=== PATIENT | female | born 1935 | race Caucasian/White ===

== ENCOUNTER 2016-10-23 05:34 | Inpatient (IN) | payer MEDICARE ==
[2014-10-09 03:48] VITALS: BMI 26.7
[2016-10-23] MEDS ORDERED: TRANEXAMIC ACID 1,000 MG in NS 100 ML IV ONE ×4 (06:00)
[2016-10-23] MEDS ORDERED: BUPIVACAINE LIPOSOME/PF 1.3% 20 ML VIAL INF ONE (06:00)
[2016-10-23] MEDS ORDERED: GABAPENTIN 300 MG CAP ONE (06:12)
[2016-10-23] MEDS ORDERED: ACETAMINOPHEN 325 MG/TAB TABLET PO ONE (06:12)
[2016-10-23] MEDS ORDERED: CEFAZOLIN 1 GM VIAL ONE (06:12)
[2016-10-23] MEDS ORDERED: Celecoxib 200 MG CAP PO ONE (06:12)
[2016-10-23] MEDS ORDERED: OXYCODONE (OxyCONTIN) 20 MG TAB PO ONE (06:12)
[2016-10-23] MEDS ORDERED: DEXAMETHASONE 4 MG/ML VIAL ONE (06:13)
[2016-10-23 06:37] LABS: BLOOD UREA NITROGEN 9 MG/DL (7-17); CALCIUM 9.4 MG/DL (8.4-10.2); CALCULATED OSMOLALITY 266 MOs/Kg (270-290); CHLORIDE 101 mEq/L (98-107); GLUCOSE 120 MG/DL (70-99); SODIUM LEVEL 138 mEq/L (137-146)
[2016-10-23] MEDS ORDERED: FENTANYL 100 MCG/2 ML VIAL IV PRN ×2 (06:45)
[2016-10-23] MEDS ORDERED: ONDANSETRON HCL 4 MG ODT TAB PO PRN (06:45)
[2016-10-23] MEDS ORDERED: HYDROmorphone 1 MG INJECTION IV PRN ×4 (06:45→10:29)
[2016-10-23] MEDS ORDERED: ONDANSETRON HCL 4 MG/2 ML VIAL IV PRN ×2 (06:45→10:29)
[2016-10-23] MEDS ORDERED: LABETALOL 20 MG/4 ML SYRINGE IV PRN (06:45)
[2016-10-23] MEDS ORDERED: MEPERIDINE 25 MG/ML TUBEX IV PRN (06:45)
[2016-10-23] MEDS ORDERED: hydrALAZINE 20 MG/ML VIAL IV PRN (06:45)
--- NOTE | 2016-10-23 06:49 | SC.ANESPOS ---
[id number], Hemodynamically Stable, Pain Control Adequate Phase I & II Recovery Complete: Yes Apparent Anesthesia Complication: No : N - Vital Signs Blood Pressure: 154/68 Pulse: 85 Resp Rate: 18 O2 Sat: 97 Temp: 97.7 F
--- NOTE | 2016-10-23 06:51 | HIM.ANES ---
Anesthesia Evaluation & Plan Diagnoses: UNILATERAL PRIMARY OSTEOARTHRITIS, RIGHT KNEE (10/23/16) Consented Procedure: ADDUCTOR CANAL BLOCK. RIGHT TOTAL KNEE ARTHROPLASTY - Focused Review of Systems Cardiac History: Yes: Hx Hypertension, Hx Heart Murmur, Hx Cardiac Disorders, Hx Abnormal Cholesterol/Hyperlipidemia HEENT: Yes: Cataracts (BILAT CATARACTS), Cataract Removal (BILAT), Glaucoma, Hx Dysphagia, Hx Vision Problem (READING GLASSES), Other HEENT Problems Respiratory: Yes: Hx Snoring No: Hx Pneumonia Gastrointestinal: Yes: Hx Gastrointestinal Disorders, Hx Chronic Constipation, Hx Colonoscopy, Hx Endoscopy, Hx Esophageal Dilatation, Hx Robledo's Esophagus No: Hx Gastroesophageal Reflux Disease Neurological/Musculoskeletal: Yes: Hx Back Pain No: Hx Neurological Disorders Psychological: No Hx Mental/Emotional Disorders Endocrine: No: Hx Hyperthyroidism, Hx Hypothyroidism Blood/Autoimmune: No: Hx Blood Transfusions, Hx Anemia, Hx AIDS, Hx Hepatitis (type) Smoking Status: Never smoker Hx Echocardiogram (date): Yes (10/01/2016 EF 64% TRACE MR) Surgical History: Yes: Back (CERVIAL NECK) - Focused Physical Exam NPO since: 1499 Mallampati: Class III Thyromental Distance: Greater than 3 Neck: Full Range of Motion Dental: Removable Dental Work Cardiovascular/Chest: Normal Respiratory: Decreased breath sounds Any problems with anesthesia, including nausea and vomiting?: No Any relatives with a history of Malignant Hyperthermia?: No Beta Jaqui given (if appropriate): N/A Other: Problem List Problem Status Onset Acute delirium Acute Acute psychosis Acute Facial laceration Acute Gastroesophageal reflux disease Acute Hypertension Acute Hyponatremia Acute Right knee pain Acute CBC/BMP/Other 10/23/16 06:07 Allergies Allergy/AdvReac Type Severity Reaction Status Date / Time prochlorperazine edisylate Allergy See Verified 10/23/16 06:27 [From Compazine] Comments prochlorperazine maleate Allergy See Verified 10/23/16 06:27 [From Compazine] Comments Home Medications Medication Instructions Recorded Last Taken Type Lisinopril [Prinivil] 40 mg PO DAILY 09/09/13 10/23/16 03:00 History Amlodipine [Norvasc] 10 mg PO DAILY 10/07/14 10/23/16 03:00 History Dextran 70/Hypromellose 1 - 2 drop OU . NEEDED PRN 08/30/16 10/23/16 03:00 History [Artificial Tears Drops] Diclofenac Sodium [Voltaren 1% 0 gm TOP QID PRN 08/30/16 10/21/16 08:00 History Topical Gel] Hydrocodone Bit/Acetaminophen 1 tab PO Q6 PRN 08/30/16 Unknown History [Hydrocodon-Acetaminophen 5-325] Height and Weight Patient's height 5 ft 2 in Patient's weight 145 lb 1 oz BMI 26.7 Vital Signs Temperature 97.7 F 10/23/16 06:49 Pulse Rate 85 10/23/16 06:49 Respiratory Rate 18 10/23/16 06:49 Blood Pressure 154/68 10/23/16 06:49 Pulse Oxygen Saturation 97 10/23/16 06:49 - Anesthetic Plan Anesthesia Type: General, Post-Op Block- for Pain Control ASA Class: 2 -: I have examined this patient and reviewed the medical record. The patient has been assessed prior to anesthesia. Risks and benefits of anesthesia and anesthetic technique options have been discussed and all questions answered. The patient accepts the risk and desires me to proceed with the planned anesthetic.
[2016-10-23] MEDS ORDERED: BACITRACIN 50,000 UNITS VIAL ONE (06:56)
[2016-10-23] MEDS ORDERED: BUPIVACAINE 0.25% 30 ML VIAL ONE (07:20)
--- NOTE | 2016-10-23 08:05 | HIM.ANESP ---
Procedure Note DATE OF PROCEDURE: 10/23/16 PREOPERATIVE DIAGNOSIS: Post-operative Pain Control. POSTOPERATIVE DIAGNOSIS: Same PROCEDURE: [R Femoral - Adductor Canal] Block PERFORMING PROVIDER: Rosalio Valentino MD STERILE BARRIERS: Cap, mask, sterile gown, sterile gloves, sterile drape used. TIME OUT: [720] BLOCK START Time: [724] BLOCK STOP Time: [728] COMPLICATIONS: None. BLOOD LOSS: 0 cubic centimeters. PROCEDURE FINDINGS AND TECHNIQUE: At the request of the Operative Surgeon and patient, a Femoral Nerve Block was performed for post-operative pain relief. Risk and benefits and alternatives of the procedure were explained and informed consent was obtained and surgical site confirmed with patient and chart. Time out was performed. Pulse oximetry, EKG and BP monitoring were established. The right thigh was prepped and draped in a sterile manner. Skin anesthesia was obtained with 1% xylocaine infiltration. The femoral artery was visualized and a 4" 22g Stimuplex needle was inserted. The nerves were visualized by ultrasound and an image is appended. (see chart). The block solution was injected incrementally after repeated negative aspirations. There was no pain on injection. Block Solution [0.25% Bupivicaine/1:200 epi] was used and [20] ml total injected Patient tolerated the procedure well without complications and the case was continued under [general] anesthesia as was the request of the patient.
[2016-10-23] MEDS ORDERED: LIDOCAINE 100 MG PFS IV ONE (10:00)
[2016-10-23] MEDS ORDERED: SUCCINYLCHOLINE 20 MG/1 ML INJ 10 ML MDV IV ONE (10:00)
[2016-10-23] MEDS ORDERED: DEXAMETHASONE 4 MG/ML VIAL IV ONE (10:00)
[2016-10-23] MEDS ORDERED: PROPOFOL 200 MG/20 ML VIAL IV ONE (10:00)
[2016-10-23] MEDS ORDERED: ONDANSETRON HCL 4 MG/2 ML VIAL IV ONE (10:00)
[2016-10-23] MEDS ORDERED: EPHEDrine 50 MG/ML VIAL IM ONE (10:00)
[2016-10-23] MEDS ORDERED: FENTANYL 250 MCG/5 ML VIAL IV ONE (10:00)
--- NOTE | 2016-10-23 10:26 | HIMOPRPT ---
DATE OF PROCEDURE: DATE OF PROCEDURE: 10/23/16 PREOPERATIVE DIAGNOSES: [Degenerative joint disease right knee] POSTOPERATIVE DIAGNOSES: [Same] PROCEDURE: [Right] total knee arthroplasty DRAINS: [Hemovac] SPECIMENS REMOVED: [bone cuts] ESTIMATED BLOOD LOSS: [150cc] ANESTHESIA: [GETA] COMPLICATIONS: [None]. FINDINGS: [as above] TOURNIQUET TIME: [90] minutes at [350] mmHg. IMPLANTS: [[place] [employer]] Size [3] Cruciate retaining femur Size [3 ] Primary Tibial baseplate [9]mm CS polyethylene insert [29]mm symmetric all poly patellar component SURGEON: Escobar Self DO. SCIENTIFIC ILLUSTRATOR: [FRANSISCA Christian] INDICATIONS FOR PROCEDURE: [Right] knee pain , Failure of conservative treatment of DJD DESCRIPTION OF PROCEDURE:[Mrs Huizar] is a [81]-year old [female] with a history of severe tricompartmental osteoarthritis of [right] knee. The patient had failed all conservative measures and requested to proceed with right total knee arthroplasty. All risks, benefit, and alternatives to the planned procedure were discussed. [She] understood these risks and elected to proceed with the planned surgery. On the date of the procedure , the patient was identified in the preop holding area and the [right] lower extremity was marked as correct operative side. The patient was then taken to the operating room where successful induction of general anesthesia was performed. The patient was positioned in the supine position with all bony prominences well padded. Patient did receive Ancef 1 g IV as well as 1 g IV of Transexamic acid prior to incision being made. An additional 1 g IV of tranexamic acid was given at the time of wound closure. The [right] lower extremity was prepped and draped in sterile fashion. A time-out was performed, again identifying the correct patient and the [right] side as the correct operative side. The initial approach was made with the tourniquet deflated. A 10 cm incision was then made over the anterior aspect of the [right] knee centered over the patella towards the tibial tubercle. Subcutaneous tissues were dissected down to the capsule and extensor mechanism. A medial parapatellar arthrotomy was performed entering the knee joint. The patella subluxed laterally. The infrapatellar fat pad was excised as well as the distal femur synovium and a medial release was performed from the proximal tibia to the mid coronal plane. Patient had excessively tight tissues over the medial aspect of the knee from her varus deformity . The knee was then flexed and the anterior horns of the medial and lateral meniscus were excised. The opening drill bit was utilized to enter the distal femur and the distal femoral alignment kiera and cutting guide were inserted. The distal cutting guide was pinned into position for a planned [8] mm resection. Distal femoral cut was made in 5 of valgus. Femoral sizing guide was placed and this measured a size [3] femur. No notching was noted. The 4 in 1 femoral cutting block for a size [3] was next pinned into position. The 4 in 1 cuts were then made. A trial [3] femur was malleted into position and this was a good fit. Attention was then next turned to the tibia. The PCL retractor was placed and the tibia was delivered anteriorly. The remaining medial and lateral meniscus and soft tissue were excised at this point. The PCL was recessed but left intact. The extramedullary tibial cutting guide was placed and pinned into position for a planned [9] mm resection off of the least affected side. The oscillating saw was utilized to make a tibial osteotomy. The size [3] tibial base plate was placed and did give adequate coverage. This was floated with a [9] mm poly and the size [3] femoral trial was placed and a reduction was performed. I then marked the tibia anteriorly in the correct amount of external rotation and the patella tracked well with this maneuver. The size 3 tibial tray was then pinned into position. I checked the alignment with a drop kiera and it bisected the ankle aiming towards the 2nd ray of the foot. The keel punch was then used and the preparation for the tibia was finished. Next the patella was everted and calipers were used to measure the thickness. A free hand cut was made with the oscillating saw and the patella was remeasured. A size [29] symmetric patella was chosen and the drill holes were made. Next a trial reduction with all components in place was performed. The knee reach greater than 120 of flexion on the OR table and full extension. There was no significant laxity to varus or valgus stress and ligamentous tension was balanced. The patella tracked well within the femoral trochlea within a no thumbs technique. Next all trial components were removed. Exparel injection was placed into the posterior capsule, periosteal tissues, medial and lateral gutters, and within the extensor mechanism. The knee was thoroughly irrigated and bone surfaces were dried. Soft tissue retractors were placed and the final tibial and femoral components were cemented into position. Excess cement was removed with a [place] elevator. The asymmetric all polyethylene patellar component was cemented in a position at this time and excess cement removed from the periphery. A 9 mm cruciate stabilized/deep dish polyethylene insert was inserted and seated well. Cement was allowed to dry and excess cement was removed from the periphery. The knee again was again placed through a range of motion and was stable to varus and valgus stress. The patella tracked well within the trochlea. A [ Hemovac] drain was placed. The capsule and extensor mechanism were closed in watertight fashion with #1 Vicryl interrupted sutures and a running looped 1. Strata fix Quill suture. The knee was flexed and there was no fluid extravasation. The subcutaneous tissues were then closed in layered fashion with 2-0 interrupted Vicryl sutures. Dat were utilized to close the skin. And aquagel dressing, soft roll, and Ronaldo wrap were applied. The patient did tolerate this procedure well and was transferred to the PACU in stable condition. [Enmanuel Strong [facility]] was the operative nursing home assistant during this case. Due to the complex nature of the procedure, and under direct supervision, his assistance was needed for patient positioning, prepping and draping, soft tissue retraction, handling of instruments, manipulation of the extremity, wound closure, application of dressings postoperatively.
[2016-10-23] MEDS ORDERED: OXYCODONE HCL 5 MG TABLET PO PRN ×2 (10:29)
[2016-10-23] MEDS ORDERED: DIPHENHYDRAMINE 25 MG CAP PO PRN (10:29)
[2016-10-23] MEDS ORDERED: Aluminum;Magnesium;Simethicone 30 ML UDC PO PRN (10:29)
[2016-10-23] MEDS ORDERED: DIPHENHYDRAMINE 50 MG/ML VIAL IV PRN (10:29)
[2016-10-23] MEDS ORDERED: SODIUM CHLORIDE 0.9% 3 ML FLUSH FLUSH PRN (10:29)
[2016-10-23] MEDS ORDERED: MAGNESIUM HYDROXIDE 30 ML BOTTLE PO PRN (10:29)
[2016-10-23] MEDS ORDERED: ARTIFICIAL TEARS OPH SOLN 15 ML OU PRN (10:46)
[2016-10-23] MEDS ORDERED: FENTANYL 100 MCG/2 ML VIAL ONE (10:55)
[2016-10-23] MEDS ORDERED: Acetaminophen, Intravenous 1,000 MG/100 ML IVBOT IV ONE (11:00)
[2016-10-23] MEDS ORDERED: NALOXONE 0.4 MG/ML AMPULE IV SCH (11:00)
[2016-10-23] MEDS ORDERED: Pharmacy Discontinue All Previous Acetaminophen Orders SCH (11:00)
[2016-10-23] MEDS ORDERED: SODIUM CHLORIDE 0.9% 3 ML FLUSH FLUSH SCH (11:00)
--- NOTE | 2016-10-23 11:17 | DIRPT ---
CLINICAL DATA: Total right knee arthroplasty. EXAM: PORTABLE RIGHT KNEE - 1-2 VIEW COMPARISON: 10/09/2014 FINDINGS: The femoral and tibial components are well seated. No complicating features are demonstrated. IMPRESSION: Well seated components of a total right knee arthroplasty. No complicating features. Electronically Signed By: Navi Kennedy M.D. On: 10/23/2016 11:15
[2016-10-23] MEDS: NS 1,000 ML IV SCH (14:28)
[2016-10-23] MEDS ORDERED: Vaccine Screening Complete SCH (15:00)
[2016-10-23] MEDS: Cefazolin 2gm/50 ml D5W 2 GM/50 ML RTU IV SCH ×2 (15:11→22:36)
[2016-10-23] MEDS: CALCIUM CARBONATE + VITAMIN D 500 MG TAB PO SCH ×2 (15:12→17:39)
[2016-10-23] MEDS: VITAMINS, MULTIPLE CAP PO SCH (15:12)
[2016-10-23] MEDS: Celecoxib 200 MG CAP PO SCH (17:39)
[2016-10-23] MEDS: Aspirin (Orange Enteric Coated) 325 mg tab PO SCH (17:39)
[2016-10-23] MEDS: PANTOPRAZOLE 40 MG TAB PO SCH (17:39)
[2016-10-23] MEDS: SODIUM CHLORIDE 0.9% 3 ML FLUSH FLUSH SCH (18:31)
[2016-10-23] MEDS: Acetaminophen, Intravenous 1,000 MG/100 ML IVBOT IV SCH ×2 (18:31→23:40)
[2016-10-23] MEDS: DOCUSATE-SENNA CONCENTRATE TAB PO SCH (21:05)
[2016-10-23] MEDS: OXYCODONE (OxyCONTIN) 10 MG TAB PO SCH (21:05)
[2016-10-24] MEDS: SODIUM CHLORIDE 0.9% 3 ML FLUSH FLUSH SCH ×2 (01:02→17:30)
[2016-10-24] MEDS: Acetaminophen, Intravenous 1,000 MG/100 ML IVBOT IV SCH ×2 (05:17→10:57)
[2016-10-24] MEDS: PANTOPRAZOLE 40 MG TAB PO SCH ×2 (05:18→17:30)
[2016-10-24 06:25] LABS: MPV 7.3 fL (7.4-10.4)
[2016-10-24 06:50] LABS: BLOOD UREA NITROGEN 9 MG/DL (7-17); CALCIUM 9.7 MG/DL (8.4-10.2); CALCULATED OSMOLALITY 260 MOs/Kg (270-290); CHLORIDE 100 mEq/L (98-107); GLUCOSE 111 MG/DL (70-99); SODIUM LEVEL 135 mEq/L (137-146)
--- NOTE | 2016-10-24 06:58 | PCM.ORTHBL ---
- Subjective Post Op Day: 1 Daily Assessment - Patient: Reports: No new complaints, Awake Alert Oriented x4 , Feels better, Pain is less, Tolerating Regular Diet, Voiding without difficulty, Afebrile, Ambulating with Physical Therapist, Other (Denies chest pain). Denies: Difficulty Swallowing, Shortness of breath, Nausea, Vomiting - Objective / Physical Exam Vital Signs: Temperature: 97.6 F (10/24/16 03:07) HR: 84 (10/24/16 03:07)RR: 18 (10/24/16 03: 07) BP: 152/71 (10/24/16 03:07)Pulse Ox: 93 (10/24/16 03:07) General: Alert, Oriented x3, Cooperative, No acute distress, Well appearing Musculoskeletal / Extremities: 2 plus Dorsalis Pedis Pulse, Dressing Clean/Dry/ Intact. negative: Tenderness (no calf tenderness) Neurological: Positive Sensation First Dorsal Web Space, Sensation to light touch intact, Extensor Hallicus Longus Intact, Flexor Hallicus Longus Intact, Dorsiflexion Intact, Plantarflexion Intact Skin: No rashes Laboratory/Diagnostics Reviewed: 10/24/16 06:15 10/24/16 06:15 - Assessment and Plan (1) Status post total right knee replacement using cement Acute Z96.651 - PRESENCE OF RIGHT ARTIFICIAL KNEE JOINT Plan: POD#1 s/p right TKA PT/OT/WBAT TEDS/SCDS/ECASA 325mg BID for 30 days post-op for DVT prophylaxis continue pain management D/c planning.
[2016-10-24] MEDS: Cefazolin 2gm/50 ml D5W 2 GM/50 ML RTU IV SCH (07:55)
[2016-10-24] MEDS: Aspirin (Orange Enteric Coated) 325 mg tab PO SCH ×2 (07:56→17:30)
[2016-10-24] MEDS: Celecoxib 200 MG CAP PO SCH ×2 (07:56→17:30)
[2016-10-24] MEDS: AMLODIPINE 10 MG TAB PO SCH (07:58)
[2016-10-24] MEDS: OXYCODONE (OxyCONTIN) 10 MG TAB PO SCH ×2 (07:58→20:01)
[2016-10-24] MEDS: LISINOPRIL 40 MG TAB PO SCH (07:58)
[2016-10-24] MEDS ORDERED: PNEUMOCOCCAL 0.5 ML VIAL IM ONE (08:00)
[2016-10-24] MEDS ORDERED: Remove Transdermal Scopolamine Patch after 24 hours ONE (08:00)
[2016-10-24] MEDS: NS 1,000 ML IV SCH (08:06)
[2016-10-24] MEDS ORDERED: CHAPSTICK LIP BALM ONE (10:28)
[2016-10-24] MEDS: VITAMINS, MULTIPLE CAP PO SCH (10:57)
[2016-10-24] MEDS: CALCIUM CARBONATE + VITAMIN D 500 MG TAB PO SCH ×2 (10:57→17:30)
[2016-10-24] MEDS: DOCUSATE-SENNA CONCENTRATE TAB PO SCH (19:59)
[2016-10-24] MEDS: ACETAMINOPHEN 325 MG/TAB TABLET PO SCH (21:52)
--- NOTE | 2016-10-25 05:42 | PCM.DCS92 ---
- Final/Secondary Discharge Diagnosis (1) Status post total right knee replacement using cement Acute Z96.651 - PRESENCE OF RIGHT ARTIFICIAL KNEE JOINT Present on Admission: Yes Discharge Disposition: Home Discharge Condition: Stable Cognitive Discharge Status: Unimpaired Fuctional Discharge Status: Walker Assistance, Recent lower extremety joint replacement, Post-op Weakness Physician Follow up/Referrals: Escobar Self DO [Staff Physician] - Two Weeks Home Medications/ New Prescriptions: New Aspirin (OrangeEnteric Coated) [Ecotrin] 325 mg PO BID #60 tab Celecoxib (anti-inflammatory) [Celebrex] 200 mg PO DAILY #12 capsule Oxycodone Immediate Release [Oxycodone Immediate Release (OxyIR)] 5 mg PO Q4H PRN #40 tab PRN Reason: Pain Senna Concentrate [Senokot] 2 tab PO QHS #60 tablet No Action Lisinopril [Prinivil] 40 mg PO DAILY Amlodipine [Norvasc] 10 mg PO DAILY Diclofenac Sodium [Voltaren 1% Topical Gel] 0 gm TOP QID PRN PRN Reason: Pain Dextran 70/Hypromellose [Artificial Tears Drops] 1 - 2 drop OU . NEEDED PRN PRN Reason: dry eyes Discharge Home Medication List Lisinopril [Prinivil] 40 mg PO DAILY 09/09/13 [History Confirmed 10/23/16 Last Taken 10/23/16 03:00] Amlodipine [Norvasc] 10 mg PO DAILY 10/07/14 [History Confirmed 10/23/16 Last Taken 10/23/16 03:00] Dextran 70/Hypromellose [Artificial Tears Drops] 1 - 2 drop OU . NEEDED PRN [History Confirmed 10/23/16 Last Taken 10/23/16 03:00] Aspirin (OrangeEnteric Coated) [Ecotrin] 325 mg PO BID #60 tab 10/24/16 [Rx Last Taken Unknown] Celecoxib (anti-inflammatory) [Celebrex] 200 mg PO DAILY #12 capsule 10/24/16 [ Rx Last Taken Unknown] Oxycodone Immediate Release [Oxycodone Immediate Release (OxyIR)] 5 mg PO Q4H PRN #40 tab 10/24/16 [Rx Last Taken Unknown] Senna Concentrate [Senokot] 2 tab PO QHS #60 tablet 10/24/16 [Rx Last Taken Unknown] Additional Instructions: DATE: 10/25/16 Post Hospital Stay (Discharge) Joint Precautions Knee Joint Precautions For the safety of your new knee, you should follow these precautions, especially during the first four weeks after surgery. n DO stay active. When your therapist says you are ready, you should take daily walks, increasing your distance as tolerated. n DO use a cane or walker after your knee replacement if you need one. n DO step with the surgery leg first. n DO NOT place a pillow under your knee. n DO NOT sit on low chairs. A chair with arms will allow you to get up and down easier. n DO NOT turn or twist your knee for six to eight weeks. n DO NOT sit longer than one hour at a time as this may make the muscles around your knee stiffen. n DO NOT step until your walker is steady on the floor or ground. n DO NOT do any of the following activities until cleared by your surgeon: 1. Return to work 2. Drive a car 3. Participate in sports 4. Engage in sex 5. Take a tub bath Diet at Discharge: As Tolerated, Regular Activity: As Tolerated, No Heavy Lifting, No Driving Call Office For: Worsening Symptoms, Wound is Draining Pus, Fever over 101 F, Fever over 100.5, Wound is Painful, Wound is Red, Weight Gain (see below), Pain Uncontrolled By Meds, Other (See Details) Discontinue use of:: Alcohol, All Illegal Substances, All Types of Tobacco - DC Summary Notes Hospital Course Note:: Discharge summary on patient named PRIYA CRAWFORD admitted to [facility] on 10/23/16 by Escobar Self DO. Date of discharge is [10/25/16] . Afebrile. Hospital course and surgery uneventful. Progressing well with PT. Continue pain management. ECASA 325mg BID for 30 days post-op for DVT prophylaxis. Aquacel dressing to be removed on POD#7, then daily dry dressing changes as needed. OK to shower with Aquacel dressing in place. Stable for discharge home with HH/PT. To follow-up in office in 2 weeks or earlier as needed. Wound Care Surgical Site: Yes Site Description (if applicable): right knee May Shower Starting:: upon discharge with Aquacel in place Dressing/Site Care (if applicable): quacel dressing to be removed on POD#7, then daily dry dressing changes as needed. Medical Equipment (Order must still be written on paper): Walker Remove Transdermal Scopalamine patch if present: YES Medication Instructions: Take Stool Softener Continue Ice Packs/Ice Machine to Operative Area: Yes Activity as Tolerated: Yes Weight Bearing: Full Current Dressing: Aquacel Dressing Care: Shower with Tegaderm Dsg (Aquacel in place), No Tub Baths, Other Instructions Below (quacel dressing to be removed on POD#7, then daily dry dressing changes as needed.) - Consults/Home Health Outpatient Consults: Home Health, Physical Therapy - Physical Exam Vital Signs: Initial Vitals Temperature 97.7 F 10/23/16 06:33 Pulse Rate 85 10/23/16 06:33 Respiratory Rate 18 10/23/16 06:33 Blood Pressure 154/68 10/23/16 06:33 Pulse Oxygen Saturation 97 10/23/16 06:33 Constitutional: No apparent distress, Alert Oriented to: Time, Person, Place - HEENT Head: Normal - Musculoskeletal Extremities: Pedal Pulse, Other (dressing clean, dry, intact). negative: Calf Tenderness - Integumentary Skin: negative: Rash - Neurologic Memory Impaired: Normal Motor Function: Normal Cranial Nerve: Normal Cerebellar: Normal Mood Description: Normal Thought: Coherent Perception: Normal
[2016-10-25] MEDS: PANTOPRAZOLE 40 MG TAB PO SCH (05:52)
[2016-10-25] MEDS: ACETAMINOPHEN 325 MG/TAB TABLET PO SCH (05:52)
[2016-10-25] MEDS: SODIUM CHLORIDE 0.9% 3 ML FLUSH FLUSH SCH (05:54)
[2016-10-25 06:23] VITALS: BP 139/60; PULSE 80; TEMP 98.6
--- NOTE | 2016-10-25 06:42 | PCM.ORTHBL ---
- Subjective Post Op Day: 2 Daily Assessment - Patient: Reports: No new complaints, Awake Alert Oriented x4 , Feels better, Pain is less, Tolerating Regular Diet, Voiding without difficulty, Afebrile, Ambulating with Physical Therapist. Denies: Shortness of breath, Nausea, Vomiting - Objective / Physical Exam Vital Signs: Temperature: 98.6 F (10/25/16 06:00) HR: 80 (10/25/16 06:00)RR: 18 (10/25/16 06: 00) BP: 139/60 (10/25/16 06:00)Pulse Ox: 95 (10/25/16 06:00) General: Alert, Oriented x3, Cooperative, No acute distress, Well appearing Musculoskeletal / Extremities: 2 plus Dorsalis Pedis Pulse, Dressing Clean/Dry/ Intact, Other (Able to perform SLR). negative: Tenderness (no calf tenderness) Neurological: Positive Sensation First Dorsal Web Space, Sensation to light touch intact, Extensor Hallicus Longus Intact, Flexor Hallicus Longus Intact, Dorsiflexion Intact, Plantarflexion Intact Skin: No rashes - Assessment and Plan (1) Status post total right knee replacement using cement Acute Z96.651 - PRESENCE OF RIGHT ARTIFICIAL KNEE JOINT Plan: POD#2 s/p right TKA PT/OT/WBAT TEDS/SCDS/ECASA 325mg BID for 30 days post-op for DVT prophylaxis Continue pain management D/C plan for home today with HH/PT
[2016-10-25 07:25] LABS: MPV 7.7 fL (7.4-10.4)
[2016-10-25] MEDS: LISINOPRIL 40 MG TAB PO SCH (07:58)
[2016-10-25] MEDS: OXYCODONE (OxyCONTIN) 10 MG TAB PO SCH (07:58)
[2016-10-25] MEDS: Celecoxib 200 MG CAP PO SCH (07:58)
[2016-10-25] MEDS: AMLODIPINE 10 MG TAB PO SCH (07:59)
[2016-10-25] MEDS: VITAMINS, MULTIPLE CAP PO SCH (07:59)
[2016-10-25] MEDS: CALCIUM CARBONATE + VITAMIN D 500 MG TAB PO SCH (07:59)
[2016-10-25] MEDS: Aspirin (Orange Enteric Coated) 325 mg tab PO SCH (07:59)
== END 2016-10-25 11:18 | disposition home or self-care (01) | DRG 470 ==
LOC: SDC 05:34 → MPS3 13:59
PROVIDERS: ADMIT Orthopaedic Surgery; ATTEND Orthopaedic Surgery
PROC: 0SRC0J9 Replacement of Right Knee Joint with Synthetic Substitute, Cemented, Open Approach (ICD-10-PCS; principal; 2016-10-23 07:15)
DX: M17.11 Unilateral primary osteoarthritis, right knee (principal); I10 Essential (primary) hypertension; Z88.8 Allergy status to other drugs, medicaments and biological substances; Z79.899 Other long term (current) drug therapy; R01.1 Cardiac murmur, unspecified
CPT/HCPCS: 80048; 85027; 86850; 86900; 86901; 90471; 90732; 97161; 97165; C9290; G0237; J0131; J0171; J0330; J0690; J1100; J2001; J2405; J3010; J3490; J7030; S0020